=== PATIENT | female | born 1950 | race Caucasian/White ===

== ENCOUNTER → 2021-07-08 | Outpatient (CLI) | payer OTHER ==
[~2021-07-08] MED LIST: ALPRAZOLAM 0.0.25 M1 PO; APAP W/CODEINE1 TA2 PO; ATORVASTATIN CA10 MG PO; BENADRYL25 MG PO; DULOXETINE HCL60 MG PO; FUROSEMIDE 40 M40 M1 PO; LEVOTHYROXINE100 MCG PO; MELATONIN3 M1 PO; METFORMIN HCL500 MG PO; MIRALAX17 GM PO; NEXIUM 24HR20 M1 PO; PRESERVISION T1 EACH PO; PRINIVIL40 MG PO; PROAIR HFA8.5 GM INH
[2021-07-08 08:48] LABS: MCH 33.1 pg (26.0-34.0); MCHC 35.5 g/dL (28.0-37.0); MCV 93.1 fL (80.0-100.0); RBC 3.33 mil/uL (4.20-5.00); RDW 13.4 % (10.5-14.5); WBC 10.9 thou/uL (4.0-11.0)
[2021-07-08 09:02] LABS: ALBUMIN 3.8 g/dL (3.4-5.0); CALCIUM 8.9 mg/dL (8.5-10.1); CREATININE 1.2 mg/dL (0.6-1.0); POTASSIUM 4.9 mmol/L (3.5-5.1); URINE BILIRUBIN NEGATIVE (Negative); URINE BLOOD NEGATIVE (Negative); URINE CLARITY CLEAR; URINE COLOR YELLOW; URINE GLUCOSE-RANDOM* NEGATIVE (Negative); URINE KETONES NEGATIVE (Negative); URINE LEUKOCYTES-REFLEX NEGATIVE (Negative); URINE NITRITE-REFLEX NEGATIVE (Negative); URINE PROTEIN (DIPSTICK) NEGATIVE (Negative); URINE SPECIFIC GRAVITY <= 1.005 (1.005-1.035); URINE UROBILINOGEN 0.2 E.U./dl (0.2-1.0)
[2021-07-08 09:27] LABS: PROTIME 10.9 Seconds (10.5-12.1)
--- NOTE | 2021-07-08 15:14 | EKG ---
[place] [address] [facility] [place] [place] [address] ELECTROCARDIOGRAM REPORT Name: MIGUEL MCCONNELL Room #: [id number] Admission: 07/08/21 Attend Phys: Skip Watson MD Discharge: Date of : 52 Report #: [id number] [facility] Test Date: 2021-07-08 Test Time: 08:37:33 Pat Name: MIGUEL MCCONNELL Department: Room: Gender: F Foundry Worker General: TONEY : 1950 Requested By: Skip Watson Order Number: [id number] MD: Hossein Haines Measurements Intervals [place] Rate: 62 P: 58 DC: 137 QRS: 25 QRSD: 91 T: 44 QT: 407 QTc: 414 Interpretive Statements Sinus rhythm Abnormal R-wave progression, early transition No previous ECG available for comparison Electronically Signed On 07-08-2021 15:13:58 CDT by Hossein Haines [email or web address] <ELECTRONICALLY SIGNED> By: Hossein Haines MD, [facility] 07/08/21 1513 0837 [id number] Hossein Haines MD, FACC /EPI
[2021-07-09 01:06] LABS: GLYCOHEMOGLOBIN (HGB A1C) 6.4 % (4.8-5.6)
== END ==
LOC: PAC 08:00
PROVIDERS: ATTEND Orthopaedic Surgery Sports Medicine
DX: Z01.818 Encounter for other preprocedural examination (principal); M17.11 Unilateral primary osteoarthritis, right knee

== ENCOUNTER 2021-07-22 06:41 | Observation (INO) | payer OTHER ==
[~2021-07-22] VITALS: Ht 172.7 cm; Wt 90.7 kg
[2021-07-22 08:01] VITALS: BP 121/61
[2021-07-22 14:09] VITALS: BP 128/60
--- NOTE | 2021-07-22 15:49 | NUR ---
ASSUMED PT CARE AT 1410 FROM PACU. PT HAD R TOTAL KNEE REPLACEMENT. CONSULTED HOSPITALIST AND INFORMED TO RESTART HOME MEDS. PT HAS IV SITE ON LFA RUNNING D5 1/2 NS @100ML/HR. PT IS ACCUCHECK ACHS. PT HAS [facility] THIGH HIGH BILATERAL, POLAR CARE ON RLE. PT IS ON ROOM AIR. FINISHED ADMISSION. PT COUSIN AT THE BEDSIDE. WILL CONTINUE TO MONITOR PT. FOLLOW POC.
[2021-07-22 19:20] VITALS: BP 114/68
--- NOTE | 2021-07-23 03:04 | NUR ---
PT IS A/O X4 AND IS UP WITH ASSISTANCE X1 TO THE BSC. ROOM AIR. VSS. AFEBRILE. HAS NOT SLEPT MUCH THIS NOC. IS PLEASANT AND COOPERATIVE. C/O PAIN TO THE RIGHT KNEE. PRN PAIN MEDICATION GIVEN DIRECTED. FALL PRECAUTIONS IN PLACE, CALL LIGHT IS WITHIN REACH.
[2021-07-23 04:26] VITALS: BP 112/58
[2021-07-23 05:45] LABS: ABSOLUTE NEUTROPHILS 8.6 thou/uL (1.4-8.2); BASOPHILS 0.4 % (0.0-2.0); EOSINOPHILS 0.5 % (0.0-3.0); HEMATOCRIT 26.4 % (37.0-47.0); LYMPHOCYTES 15.7 % (24.0-44.0); MCH 31.7 pg (26.0-34.0); MCHC 33.9 g/dL (28.0-37.0); MCV 93.5 fL (80.0-100.0); PLATELET COUNT 265 thou/uL (150-400); POLYS 73.4 % (36.0-66.0); RBC 2.82 mil/uL (4.20-5.00); RDW 13.7 % (10.5-14.5); WBC 11.7 thou/uL (4.0-11.0)
[2021-07-23 06:13] LABS: CALCIUM 8.3 mg/dL (8.5-10.1); CREATININE 1.3 mg/dL (0.6-1.0); MAGNESIUM 1.9 mg/dL (1.8-2.4); POTASSIUM 4.3 mmol/L (3.5-5.1)
[2021-07-23 08:07] VITALS: BP 108/58
--- NOTE | 2021-07-23 10:19 | NUR ---
Assumed care of pt at 0700. Pt a&ox4. Pain controlled with prn pain medications. Dressing c/d/i. Up SBA with walker and gait-belt. Working with physical therapy this am. Call light within reach. Fall precautions in place. Will continue to monitor.
--- NOTE | 2021-07-23 14:27 | NUR ---
PT ADMITTED RELATED TO RIGHT TOTAL KNEE REPLACEMENT. CM REVIEWED CHART AND SPOKE WITH CARE TEAM. CM MET WITH PT AT BEDSIDE THIS DAY. PT APPEARED TO BE A&O X4. CM ROLE INTRODUCED. PT INDICATED SHE RESIDES IN A HOUSE WITH HER SPOUSE WITH 4 STEPS TO ENTER AND NO STEPS INSIDE. 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 PT INDICATED THAT SHE NEEDS A FWW FOR HOME USE. PT INDICATED NO PREFERANCE FOR PROVIDER. ORDERS SENT TO PROVIDER [facility]US. LIAISON ISSUES FWW THIS DAY. PT VOMITED AFTER PT THIS DAY. ANTICIPATE DC HOME TOMORROW. PT HAS OP PT SET UP AT OP [facility] PL[facility] NEXT TO [facility]. CM FOLLOWING REGARDING DC PLANNING.
[2021-07-23 15:46] VITALS: BP 143/76
[2021-07-23 19:14] VITALS: BP 133/75
--- NOTE | 2021-07-24 01:54 | NUR ---
ASSUMED PT CARE AT 1900.PT OBSERVED LYING ON HER BED WATCHING TV AT SHIFT CHANGE.DRSG TO HER R KNEE C/D/I.PT ALTERNATING BETWEEN HEAT AND COLD THERAPY FOR PAIN.POLAR PACK AND HEAT OFF AT SHIFT CHANGE PER PT'S REQUEST.PT PROGRESSING WELL TOWARDS DC GOALS.CALL LIGHT WITHIN REACH.
[2021-07-24 04:03] VITALS: BP 146/75
[2021-07-24 04:31] LABS: HEMATOCRIT 26.8 % (37.0-47.0); HEMOGLOBIN 9.2 gm/dL (12.0-15.0); MCH 32.3 pg (26.0-34.0); MCHC 34.2 g/dL (28.0-37.0); MCV 94.3 fL (80.0-100.0); RBC 2.84 mil/uL (4.20-5.00); RDW 13.6 % (10.5-14.5); WBC 9.6 thou/uL (4.0-11.0)
[2021-07-24 08:08] VITALS: BP 139/63
--- NOTE | 2021-07-24 10:40 | NUR ---
Assumed care of pt at 0700. Pt a&ox4. Pain controlled with prn pain medications. Dressing c/d/i. Up SBA with walker and gait-belt. Call light within reachj. Will continue to monitor.
[2021-07-24 12:00] VITALS: BP 139/63
--- NOTE | 2021-07-28 17:21 | O ---
[address] [address] OPERATIVE REPORT Name: MIGUEL MCCONNELL Room #: 440-P Count includes the [facility].#: [id number] Admission: 07/22/21 Attend Phys: Skip Watson MD Discharge: 07/24/21 Date of : 52 Report #: [id number] THIS REPORT FOR: cc: Micheline Dale MD,Micheline Watson,Skip Velarde MD ~ DATE OF SERVICE: 07/22/2021 SERVICE: Orthopedics. FACILITY: [facility]. SURGEON: Skip Watson MD FERMENTING CELLAR DROPPER: Milana White NP INDICATIONS FOR FERMENTING CELLAR DROPPER: Extremity positioning, retraction, exposure and assistance with closure. PREOPERATIVE DIAGNOSES: 1. Right knee pain. 2. Severe right knee osteoarthritis. POSTOPERATIVE DIAGNOSES: 1. Right knee pain. 2. Severe right knee osteoarthritis. PROCEDURE PERFORMED: 1. Right total knee arthroplasty. 2. Robotic-assisted knee replacement. COMPLICATIONS: None. DRAINS: None. SPECIMENS: None. ESTIMATED BLOOD LOSS: 20 mL. FINDINGS: [employer] size 5 femoral component with size 6 tibial component and 10 mm poly insert and 32 mm patellar button. BRIEF HISTORY: The patient is a 70-year-old female with history of severe progressive right knee osteoarthritis that had failed conservative measures including rest, activity modifications, physical therapy, oral medicines, modalities and injections. She had x-rays, which showed severe [id number] [address] [address] OPERATIVE REPORT Name: MIGUEL MCCONNELL Room #: 440-P [id number] Admission: 07/22/21 Attend Phys: Skip Watson MD Discharge: 07/24/21 Date of : 52 Report #: [id number] osteoarthritis with osteophyte sclerosis and joint space narrowing. She had pain affecting activities of daily living and she was indicated for surgical treatment. Risks, benefits, alternatives and indications for surgery were discussed with her in detail. She wished to move forward. Risks include but not limited to pain, bleeding, infection, injury to nerves or blood vessels, persistent pain despite surgical intervention, failure of the procedure, need for further surgery as well as complications related to anesthesia up to and including mortality. Despite the risks, she wished to proceed. DESCRIPTION OF PROCEDURE: After right lower extremity was correctly identified in the preoperative holding area as the operative extremity, the patient was taken to the operating room. General anesthesia with LMA was induced without complication. She was padded appropriately. Prophylactic antibiotics were administered. After appropriate time, tourniquet was applied to right lower extremity. She had the regional nerve block in the preoperative holding area. Right leg was prepped and draped in standard sterile fashion. Timeout procedure was performed. Esmarch were used, tourniquet inflated to 300 mmHg. Standard anterior approach was made with medial parapatellar arthrotomy. Osteophytes were removed as were the anterior horns of the menisci and the ligaments. She had severe osteoarthritis, tricompartmental, the worst was laterally where she had completely exposed bone and grooves within the medial femoral condyle from the [id number] contact. There were loose bodies, which were removed. Initial preparation was completed. Then, we proceeded with placement of the checkpoints and femoral and tibial half-pins for the robotic system with the [employer] [place] and [employer] robotic-assisted knee replacement. The mapping was completed and then proceeded with the distal femoral cut using the robotic bur and then the 5-in-1 cutting block was used to prepare the femur sized to a 5 accommodating the patient's preoperative alignment, range of motion and wear pattern. We used the robotics to set the placement of the tibial cut in a similar fashion and then removed the tibia, completed the osteophyte excision and removal of the posterior horn of the menisci and then we proceeded with assessing the flexion and extension gaps with the 10 insert and it felt very well balanced in both flexion and extension and medially and laterally, so we proceeded with preparation of the box on the femur and then preparation of the patella. The first 40 mL of the periarticular injection cocktail was injected in the posterior capsule prior to placement of the trials and then knee was irrigated. Trials were placed and we utilized the 10 mm poly. The Navio system was then used to assess the balancing, I was happy with the balancing throughout the full range of motion both with the robotics and on visual and manual inspection, so we selected these as our final implants. Trials were removed. Final bone preparation was completed. The wound was thoroughly irrigated and then the components were cemented into position. The knee was placed into full extension while the cement cured. Excess cement was resected. Remaining portion of the periarticular injection cocktail was injected into the [facility] [address] [place] [address] OPERATIVE REPORT Name: MIGUEL MCCONNELL Room #: 440-P MELVA Mota#: [id number] Admission: 07/22/21 Attend Phys: Skip Watson MD Discharge: 07/24/21 Date of : 52 Report #: [id number] soft tissues and then the tourniquet was let down and hemostasis was achieved. The 10 poly trial was the appropriate poly based on assessment at this point manually and visually, so we selected the final trial poly on a size 10 and irrigated the knee once more and snapped this into position. Knee was taken through full range of motion. The patella tracked well, irrigated and then closed the arthrotomy with a gram of vancomycin powder with 0 Vicryl suture in [id number]-[id number] interrupted fashion. Skin was closed with 2-0 Vicryl followed by running subcuticular 3-0 Monocryl. A sterile dressing was applied followed by compression stocking [employer]. The patient was awakened from anesthesia and taken to recovery room in stable condition. No complications. All counts were correct. <ELECTRONICALLY SIGNED> By: Skip Watson MD 07/28/21 1721 1055 1115 Skip Watson MD /nt
== END 2021-07-24 13:01 | disposition home or self-care (01) ==
LOC: OR → 4S 06:41 → OR 06:41 → TBA 06:46 → OR 07:01 → 4S 14:03 → OR 14:04 → 4S 14:04 → OR 14:07 → 4S 07-24 13:01
PROVIDERS: Nurse Practitioner; ADMIT Orthopaedic Surgery Sports Medicine; ATTEND Orthopaedic Surgery Sports Medicine
DX: M17.11 Unilateral primary osteoarthritis, right knee (principal); Z20.822 Contact with and (suspected) exposure to COVID-19; Z88.2 Allergy status to sulfonamides; Z79.84 Long term (current) use of oral hypoglycemic drugs; Z79.899 Other long term (current) drug therapy
CPT/HCPCS: 50010; 50101; 50415; 50954; 51130; 51225; 53000; 53078; 53365; 54118; 56527; 56528; 57095; 57103; 57110; 57127; 57180; 59024; 62110; 62900; 64043; 65060; 70005